=== PATIENT | female | born 1965 | race African-American/Black ===

== ENCOUNTER 2019-03-20 09:34 | Emergency (ER) | payer OTHER ==
--- OUTSIDE RECORDS SUMMARY | 2019-03-20 09:36 | XMS REPORT ---
:1965 [facility] Address [address] [place] [address] Dr. Serr[address] [place] [address] Care Team Providers Name Role Phone Unavailable Unavailable Unavailable Problems This patient has no known problems. Allergies, Adverse Reactions, Alerts This patient has no known allergies or adverse reactions. Medications This patient has no known medications. Encounters Start End Encounter Admission Attending Care Care Encounter Date/Time Date/Time Type Type Clinicians Facility Department ID 2018-02-28 2018-02-28 Emergency E [id number] 07:55:00 07:55:00
--- NOTE | 2019-03-20 11:27 | RAD REPORT ---
EXAM DESCRIPTION: Bishop Mayer (2 Views)03/20/2019 10:53 am CLINICAL HISTORY: sob COMPARISON: None FINDINGS: The lungs appear clear of acute infiltrate. The heart is mildly enlarged IMPRESSION: No acute abnormalities displayed
[2019-03-20 11:55] LABS: Absolute Lymphocytes (CBC) 1.6 K/uL (0.7-4.9); Basophils % 0.3 % (0-1.3); Hematocrit 34.1 % (36.0-45.0); Lymphocytes % 23.9 % (15.3-44.8); MPV 7.5 fL (7.6-11.3); RBC Red Blood Cell Count 4.73 M/uL (3.86-4.86)
[2019-03-20 12:14] LABS: BUN Blood Urea Nitrogen 10 mg/dL (7-18); Bicarbonate 26 mmol/L (21-32); Glucose Level 205 mg/dL (74-106); Magnesium 1.5 mg/dL (1.8-2.4); NT PRO-BNP 63 pg/mL (<125); Potassium 3.8 mmol/L (3.5-5.1); Sodium Level 140 mmol/L (136-145); Troponin (Emerg Dept Use Only) < 0.02 ng/mL (0.0-0.045)
[2019-03-20] MEDS ORDERED: MAGNESIUM OXIDE 400 MG TAB ONE (13:21)
--- NOTE | 2019-03-20 13:22 | ER ---
Nurse's Notes [facility] Name: Idalia Miller Age: 53 yrs Sex: Female : 1965 Arrival Date: 03/20/2019 Time: 09:36 Bed 30 Private MD: Diagnosis: Pleurisy;Cough Presentation: 03/20 09:44 Presenting complaint: Patient states: SOB on exertion and while laying down. Pt states, ss "When I breathe in real deep, I get a pain on my left side. This has happened before, and I ended up with pneumonia." Reports dry cough x 2 days. Denies fever. Transition of care: patient was not received from another setting of care. Onset of symptoms was March 16, 2019. Risk Assessment: Do you want to hurt yourself or someone else? Patient reports no desire to harm self or others. Initial Sepsis Screen: Does the patient meet any 2 criteria? No. Patient's initial sepsis screen is negative. Does the patient have a suspected source of infection? No. Patient's initial sepsis screen is negative. Care prior to arrival: None. 09:44 Method Of Arrival: Ambulatory ss 09:44 Acuity: AJAY 3 ss Historical: - Allergies: 09:46 PENICILLINS; ss - PMHx: 09:46 Hypertension; High Cholesterol; Diabetes - IDDM; ss - PSHx: 09:46 None; ss - Immunization history:: Adult Immunizations up to date. - Coronavirus screen:: The patient has NOT traveled to [place], [place], or [place] in the past 14 days. Proceed with normal triage process as indicated. - Social history:: Smoking status: Patient denies any tobacco usage or history of. - Ebola Screening: : Patient denies exposure to infectious person Patient denies travel to an Ebola-affected area in the 21 days before illness onset. Screenin:16 Abuse screen: Denies threats or abuse. Denies injuries from another. Nutritional sv screening: No deficits noted. Tuberculosis screening: No symptoms or risk factors identified. Fall Risk None identified. Assessment: 11:16 General: Appears in no apparent distress. uncomfortable, well groomed, well developed, sv Behavior is calm, cooperative, appropriate for age. Pain: Complains of pain in left mid back and chest Pain currently is 4 out of 10 on a pain scale. Quality of pain is described as "tightness" Is intermittent, Aggravated by deep breathing. Neuro: Level of Consciousness is awake, alert, obeys commands, Oriented to person, place, time, situation, Moves all extremities. Full function Gait is steady, Speech is normal. Cardiovascular: Patient's skin is warm and dry. Respiratory: Reports shortness of breath on exertion Airway is patent Respiratory effort is even, unlabored, Respiratory pattern is regular, symmetrical. Derm: Skin is pink, warm \\T\\ dry. Musculoskeletal: Range of motion: intact in all extremities. 11:45 Reassessment: Patient appears in no apparent distress at this time. No changes from sv previously documented assessment. Patient and/or family updated on plan of care and expected duration. Pain level reassessed. Patient is alert, oriented x 3, equal unlabored respirations, skin warm/dry/pink. 13:32 Reassessment: Patient appears in no apparent distress at this time. No changes from sv previously documented assessment. Patient and/or family updated on plan of care and expected duration. Pain level reassessed. Patient is alert, oriented x 3, equal unlabored respirations, skin warm/dry/pink. Vital Signs: 09:46 BP 163 / 89; Pulse 83; Resp 17; Temp 97.4; Pulse Ox 99% on R/A; Weight 121.11 kg; ss Height 5 ft. 6 in. (167.64 cm); Pain 4/10; 12:00 BP 124 / 60; Pulse 85; Resp 16; Pulse Ox 98% ; sv 13:10 BP 152 / 74; Pulse 91; Resp 16; Pulse Ox 100% ; sv 09:46 Body Mass Index 43.09 (121.11 kg, 167.64 cm) ss ED Course: 09:36 Patient arrived in ED. as 09:46 Triage completed. ss 09:46 Arm band placed on right wrist. ss 10:38 Paula Gómez FNP-C is PHCP. kb 10:38 Montana Childs MD is Attending Physician. kb 10:52 Chest Pa And Lat (2 Views) XRAY In Process Unspecified. EDMS 11:16 Patient has correct armband on for positive identification. Placed in gown. Bed in low sv position. Call light in reach. Door closed. Head of bed elevated. 11:17 Anna Linares, LUCIE is Primary Nurse. sv 11:45 Initial lab(s) drawn, by me, sent to lab. Missed attempt(s): 22 gauge in right forearm. sv Bleeding controlled, band aid applied, catheter tip intact. 12:36 EKG done, by instrumentation and controls technician. reviewed by Paula GARCIA. at1 13:32 No provider procedures requiring assistance completed. Patient did not have IV access sv during this emergency room visit. Administered Medications: 13:16 CANCELLED (Duplicate Order): Magnesium Sulfate 1 grams IVPB once over 30 mins kb 13:31 Drug: Magnesium 400 mg Route: PO; sv 13:31 Follow up: Response: Medication administered at discharge. sv Outcome: 13:21 Discharge ordered by MD. kb 13:32 Discharged to home ambulatory. sv 13:32 Condition: good 13:32 Discharge instructions given to patient, Instructed on discharge instructions, follow up and referral plans. Demonstrated understanding of instructions, follow-up care. 13:32 Patient left the ED. sv Signatures: Dispatcher [employer] EDWY Paula Gómez FNP-C FNP-Ckb Verde, Stephanie, RN RN Madelyn Durand Shelby, RN RN Carmela Matos, clinical writer EKG Tat1
--- NOTE | 2019-03-20 13:23 | EDPHYS ---
Physician Documentation [facility] Name: Idalia Miller Age: 53 yrs Sex: Female : 1965 Arrival Date: 03/20/2019 Time: 09:36 Bed 30 Private MD: ED Physician Montana Childs HPI: 03/20 12:58 This 53 yrs old Black Female presents to ER via Ambulatory with complaints of Shortness kb Of Breath, Back Pain. 12:58 Severity of symptoms: At their worst the symptoms were moderate in the emergency kb department the symptoms are unchanged. The patient has not experienced similar symptoms in the past. The patient has not recently seen a physician. 13:04 The patient has shortness of breath with light activity. Onset: The symptoms/episode kb began/occurred 2 day(s) ago. Duration: The symptoms are intermittent. The patient's shortness of breath is aggravated by exertion, is alleviated by rest. Associated signs and symptoms: Pertinent positives: chest pain, non-productive cough. Pt reports left lower posterior chest pain with deep breath and cough, shortness of breath on exertion and when laying flat, and dry cough for 2 days. Denies fever. Reports these symptoms are similar to previous episodes of pneumonia so wanted to make sure she didn't have that. Historical: - Allergies: 09:46 PENICILLINS; ss - PMHx: 09:46 Hypertension; High Cholesterol; Diabetes - IDDM; ss - PSHx: 09:46 None; ss - Immunization history:: Adult Immunizations up to date. - Coronavirus screen:: The patient has NOT traveled to [place], [place], or [place] in the past 14 days. Proceed with normal triage process as indicated. - Social history:: Smoking status: Patient denies any tobacco usage or history of. - Ebola Screening: : Patient denies exposure to infectious person Patient denies travel to an Ebola-affected area in the 21 days before illness onset. ROS: 12:57 Constitutional: Negative for fever, chills, and weight loss, ENT: Negative for injury, kb pain, and discharge, Neck: Negative for injury, pain, and swelling, Abdomen/GI: Negative for abdominal pain, nausea, vomiting, diarrhea, and constipation, Back: Negative for injury and pain, MS/Extremity: Negative for injury and deformity, Skin: Negative for injury, rash, and discoloration, Neuro: Negative for headache, weakness, numbness, tingling, and seizure. 12:57 Cardiovascular: Positive for chest pain, with cough, of the left scapular area. 12:57 Respiratory: Positive for cough, dyspnea on exertion, shortness of breath. Exam: 12:51 Constitutional: This is a well developed, well nourished patient who is awake, alert, kb and in no acute distress. Head/Face: Normocephalic, atraumatic. ENT: Nares patent. No nasal discharge, no septal abnormalities noted. Tympanic membranes are normal and external auditory canals are clear. Oropharynx with no redness, swelling, or masses, exudates, or evidence of obstruction, uvula midline. Mucous membranes moist. Neck: Trachea midline, no thyromegaly or masses palpated, and no cervical lymphadenopathy. Supple, full range of motion without nuchal rigidity, or vertebral point tenderness. No Meningismus. Chest/axilla: Normal chest wall appearance and motion. Nontender with no deformity. No lesions are appreciated. Cardiovascular: Regular rate and rhythm with a normal S1 and S2. No gallops, murmurs, or rubs. Normal PMI, no JVD. No pulse deficits. Respiratory: Lungs have equal breath sounds bilaterally, clear to auscultation and percussion. No rales, rhonchi or wheezes noted. No increased work of breathing, no retractions or nasal flaring. Abdomen/GI: Soft, non-tender, with normal bowel sounds. No distension or tympany. No guarding or rebound. No evidence of tenderness throughout. Skin: Warm, dry with normal turgor. Normal color with no rashes, no lesions, and no evidence of cellulitis. MS/ Extremity: Pulses equal, no cyanosis. Neurovascular intact. Full, normal range of motion. Neuro: Awake and alert, GCS 15, oriented to person, place, time, and situation. Cranial nerves II-XII grossly intact. Motor strength 5/5 in all extremities. Sensory grossly intact. Cerebellar exam normal. Normal gait. 12:51 ECG was reviewed by the Attending Physician. 12:51 Back: tenderness to posterior left lower chest. Vital Signs: 09:46 BP 163 / 89; Pulse 83; Resp 17; Temp 97.4; Pulse Ox 99% on R/A; Weight 121.11 kg; ss Height 5 ft. 6 in. (167.64 cm); Pain 4/10; 12:00 BP 124 / 60; Pulse 85; Resp 16; Pulse Ox 98% ; sv 13:10 BP 152 / 74; Pulse 91; Resp 16; Pulse Ox 100% ; sv 09:46 Body Mass Index 43.09 (121.11 kg, 167.64 cm) MDM: 11:07 Patient medically screened. kb 12:58 Data reviewed: vital signs, nurses notes. Data interpreted: Pulse oximetry: on room air kb is 98 %. Interpretation: normal. 13:18 Differential diagnosis: pneumonia, pleurisy, upper respiratory infection, chest pain, kb CHF. Counseling: I had a detailed discussion with the patient and/or guardian regarding: the historical points, exam findings, and any diagnostic results supporting the discharge/admit diagnosis, lab results, radiology results, the need for outpatient follow up, a family practitioner, to return to the emergency department if symptoms worsen or persist or if there are any questions or concerns that arise at home. 13:20 The patient's pulmonary embolism risk score was calculated as follows: No Risks (0 kb Pts). Data reviewed: lab test result(s), EKG, radiologic studies. 03/20 11:31 Order name: Basic Metabolic Panel; Complete Time: 12:16 kb 03/20 11:31 Order name: CBC with Diff kb 03/20 10:38 Order name: Chest Pa And Lat (2 Views) XRAY; Complete Time: 11:35 kb 03/20 11:31 Order name: Magnesium; Complete Time: 12:16 kb 03/20 11:31 Order name: NT PRO-BNP; Complete Time: 12:16 kb 03/20 11:31 Order name: Troponin (emerg Dept Use Only); Complete Time: 12:16 kb 03/20 11:31 Order name: EKG; Complete Time: 11:32 kb 03/20 11:31 Order name: Cardiac monitoring; Complete Time: 12:38 kb 03/20 11:31 Order name: EKG - Nurse/Tech; Complete Time: 12:38 kb 03/20 11:31 Order name: IV Saline Lock; Complete Time: 12:07 kb 03/20 11:31 Order name: Labs collected and sent; Complete Time: 12:06 kb 03/20 11:31 Order name: O2 Per Protocol; Complete Time: 12:07 kb 03/20 11:31 Order name: O2 Sat Monitoring; Complete Time: 12:07 kb EC:51 Rate is 87 beats/min. Rhythm is regular. Left axis deviation noted. [place] interval is kb normal at 164 msec. QRS interval is normal at 78 msec. QT interval is normal at 370 msec. Administered Medications: 13:16 CANCELLED (Duplicate Order): Magnesium Sulfate 1 grams IVPB once over 30 mins kb 13:31 Drug: Magnesium 400 mg Route: PO; sv 13:31 Follow up: Response: Medication administered at discharge. sv Disposition: 15:52 Co-signature as Attending Physician, Montana Childs MD. rn Disposition: 03/20/19 13:21 Discharged to Home. Impression: Pleurisy, Cough. - Condition is Stable. - Discharge Instructions: Costochondritis, [id number], Cough, Adult, [id number], Pleurisy, [id number]. - Medication Reconciliation Form, Thank You Letter, Antibiotic Education, Prescription Opioid Use form. - Follow up: Emergency Department; When: As needed; Reason: Worsening of condition. Follow up: Private Physician; When: 2 - 3 days; Reason: Recheck today's complaints, Continuance of care, Re-evaluation by your physician. Signatures: Dispatcher [employer] EDMS Paula Gómez, JOSE MCGUIREP-Anna Walton RN RN sv Nieto, Roman, MD MD rn Smirch, Shelby, RN RN ss Corrections: (The following items were deleted from the chart) 13:16 13:16 Magnesium Sulfate 1 grams IVPB once over 30 mins ordered. kb kb 13:32 13:21 03/20/2019 13:21 Discharged to Home. Impression: Pleurisy; Cough. Condition is sv Stable. Forms are Medication Reconciliation Form, Thank You Letter, Antibiotic Education, Prescription Opioid Use. Follow up: Emergency Department; When: As needed; Reason: Worsening of condition. Follow up: Private Physician; When: 2 - 3 days; Reason: Recheck today's complaints, Continuance of care, Re-evaluation by your physician. kb
[2019-03-20 16:55] VITALS: TEMP 97.4
[2019-03-20 16:58] VITALS: BP 152/74; O2SAT 100
--- NOTE | 2019-03-21 13:50 | EKG ---
Test Date: 2019-03-20 Test Time: 12:30:45 Internet Sales Associate: DEEP MEASUREMENT RESULTS: Intervals: Rate: 87 LA: 164 QRSD: 78 QT: 370 QTc: 445 [place]: P: 62 LA: 164 QRS: -2 T: 73 INTERPRETIVE STATEMENTS: Normal sinus rhythm Minimal voltage criteria for LVH, may be normal variant Cannot rule out Anterior infarct, age undetermined Abnormal ECG Compared to ECG 08/31/2011 21:31:40 Left ventricular hypertrophy now present Myocardial infarct finding now present Sinus tachycardia no longer present Electronically Signed On 03-21-19 13:46:59 DRAGGER OUT by Jorge A Wilson
== END 2019-03-20 13:32 | disposition home or self-care (01) ==
LOC: ER 09:34
DX: R09.1 Pleurisy (principal); R05 Cough; Z88.0 Allergy status to penicillin
CPT/HCPCS: 36415; 71046; 80048; 83735; 83880; 84484; 85025; 93005; 99284